=== PATIENT | male | born 1960 | race Caucasian/White ===

== ENCOUNTER 2022-06-11 07:41 | Outpatient (CLI) | payer OTHER, SELFPAY ==
[2022-06-11 12:15] LABS: Albumin* 4.4 g/dL (3.3-5.0); Chloride* 105 mmol/L (96-114); Sodium* 139 mmol/L (135-149)
[2022-06-11 12:16] LABS: Potassium* 5.2 mmol/L (3.6-5.1)
[2022-06-11 12:17] LABS: Cholesterol* 149 mg/dL (90-199)
[2022-06-11 12:18] LABS: Alkaline Phosphatase* 88 U/L (40-150); Aspartate Amino Transferase* 23 U/L (12-35); Bilirubin Total* 2.1 mg/dL (0.1-1.5); Blood Urea Nitrogen* 20 mg/dL (7-30); Calcium* 9.3 mg/dL (8.4-10.6); Carbon Dioxide* 29 mmol/L (20-32); Creatinine* 1.2 mg/dL (0.5-1.5); Estimated Glomerular Filt Rate 69 ml/min; Glucose* 100 mg/dL (60-115); Total Protein* 7.1 g/dL (6.0-8.3); Triglycerides* 57 mg/dL (40-149)
[2022-06-11 12:19] LABS: Alanine Aminotransferase* 18 U/L (4-50); HDL Cholesterol* 56 mg/dL (>=40); LDL Cholesterol Calculated 82 mg/dL (<100)
[2022-06-11 12:49] LABS: PSA Screen* 1.48 ng/mL (0.10-4.00)
[2022-06-12 15:08] LABS: Testosterone, Adult Male 523 ng/dL (300-720)
== END 2022-06-11 07:42 | disposition home or self-care (01) ==
PROVIDERS: PCP Family Medicine; Visit Provider Physician Assistant Medical
DX: E78.5 Hyperlipidemia, unspecified (principal); R68.82 Decreased libido; D68.51 Activated protein C resistance
CPT/HCPCS: 80053; 80061; 84153; 84403; 84443

== ENCOUNTER 2023-01-26 10:58 | Outpatient (CLI) | payer OTHER, SELFPAY | END 2023-01-26 10:59 | disposition home or self-care (01) | LOC: NFLDREF 15:25 | PROVIDERS: PCP Family Medicine; Referring Provider Family Medicine; Visit Provider Family Medicine | DX: I10 Essential (primary) hypertension (principal) | CPT/HCPCS: 82043; 82570 ==

== ENCOUNTER 2023-05-27 07:30 | Outpatient (CLI) | payer OTHER, SELFPAY | END 2023-05-27 07:31 | disposition home or self-care (01) | LOC: NFLDREF 05-30 07:38 | PROVIDERS: PCP Family Medicine; Referring Provider Family Medicine; Visit Provider Family Medicine | DX: Z00.00 Encounter for general adult medical examination without abnormal findings (principal); E78.5 Hyperlipidemia, unspecified; I10 Essential (primary) hypertension; R03.0 Elevated blood-pressure reading, without diagnosis of hypertension; D68.51 Activated protein C resistance | CPT/HCPCS: 80053; 80061; 82043; 82570 ==

== ENCOUNTER 2024-05-28 07:23 | Outpatient (CLI) | payer OTHER, SELFPAY | END 2024-05-28 07:24 | disposition home or self-care (01) | LOC: NFLDREF 05-31 06:39 | PROVIDERS: PCP Physician Assistant Medical; Referring Provider Physician Assistant Medical; Visit Provider Physician Assistant Medical | DX: E78.2 Mixed hyperlipidemia (principal); I10 Essential (primary) hypertension; Z12.5 Encounter for screening for malignant neoplasm of prostate | CPT/HCPCS: 80053; 80061; 84443; G0103 ==

== ENCOUNTER 2024-08-15 15:07 | Outpatient (CLI) | payer OTHER, SELFPAY ==
--- NOTE | 2024-08-15 15:30 | MR_ITS ---
[address] [address] Phone:?[phone] Fax:?[phone] Referring Physician Information: Giovanni Watkins M.D. [id number] [facility] [address] Phone:?[phone] Fax:?[phone] Patient:Carlos Segura D.O.B:?1960 Sex:?Male Phone:?[phone] [facility] MRN:?[id number] Exam Date:?08/15/2024 EXAM: MRI of the LEFT SHOULDER, without contrast CLINICAL: Reported history of adhesive capsulitis. Evaluate for rotator cuff tear. COMPARISONS: X-rays dated 08/09/2024. TECHNICAL: Multiplanar multisequence MRI of the left shoulder was obtained. SEDATION: None. CONTRAST: None. FINDINGS: Rotator cuff: Supraspinatus/Infraspinatus: There is mild tendinosis of the distal supraspinatus and infraspinatus tendons with mild partial interstitial insertional tearing of the distal supraspinatus tendon seen on coronal series 5 image 8 and sagittal series 9 image 6. Mild partial tearing involving the insertional fibers distal infraspinatus tendon on coronal series 5 images 14-15. No significant fatty atrophy of the muscle bellies. Teres minor: No tendinosis, tear or atrophy. Subscapularis: No tendinosis, tear or atrophy. Bursae: Subacromial-subdeltoid: No significant bursal fluid. Subcoracoid: No significant bursal fluid. Coracoacromial arch: Acromion morphology: Type II. No os acromiale. Acromiohumeral space: Within normal limits. Coracohumeral space: Within normal limits. Biceps tendon, long head: Intraarticular and extraarticular segments intact without rupture, tendinopathy or displacement. Glenohumeral joint: Physiologic volume of joint fluid. Articular cartilage: Suspect grade 2-3 chondral thinning involving the humeral head and superior glenoid as visualized. Capsule: There is thickening, irregularity and increased intermediate signal involving the inferior glenohumeral ligament. No evidence of capsular disruption. Increased scar/synovitis is seen within the rotator interval. Labrum: There is mild degenerative fraying of the superior labrum with degenerative fraying also seen to involve the anterior and anteroinferior labrum. No perilabral cyst identified. Bones: No suspicious marrow signal alteration, fracture or dislocation. Acromioclavicular joint: No acute injury, arthropathy, or inferior hypertrophy. IMPRESSION: 1. Mild tendinosis and mild partial tearing of the distal supraspinatus and infraspinatus tendons. 2. Findings which can be seen in patients with adhesive capsulitis. 3. Suspect grade 2-3 chondral thinning involving the humeral head and superior glenoid as visualized. 4. Normal appearance of the long head biceps tendon. No evidence of fracture. JCZ Electronically signed on 08/16/2024 8:29:00 AM by Gavin Tracy D.O.
== END 2024-08-15 15:08 | disposition home or self-care (01) ==
PROVIDERS: PCP Physician Assistant Medical; Visit Provider Orthopaedic Surgery Sports Medicine
DX: M25.512 Pain in left shoulder (principal); M75.102 Unspecified rotator cuff tear or rupture of left shoulder, not specified as traumatic; M75.02 Adhesive capsulitis of left shoulder
CPT/HCPCS: 73221

== ENCOUNTER 2024-10-30 09:00 | Outpatient (RCR) | payer OTHER, SELFPAY | END 2025-02-27 23:59 | disposition home or self-care (01) | PROVIDERS: PCP Physician Assistant Medical; Visit Provider Orthopaedic Surgery Sports Medicine | DX: M75.02 Adhesive capsulitis of left shoulder (principal); M75.112 Incomplete rotator cuff tear or rupture of left shoulder, not specified as traumatic; Z51.89 Encounter for other specified aftercare | CPT/HCPCS: 97110; 97140; 97161 ==

== ENCOUNTER 2025-06-18 07:58 | Outpatient (CLI) | payer OTHER, SELFPAY | END 2025-06-18 07:59 | disposition home or self-care (01) | LOC: NFLDREF 06-22 18:28 | PROVIDERS: PCP Physician Assistant Medical; Referring Provider Physician Assistant Medical; Visit Provider Family Medicine | DX: Z20.1 Contact with and (suspected) exposure to tuberculosis (principal) | CPT/HCPCS: 86480 ==